=== PATIENT | male | born 1955 | race Caucasian/White ===

== ENCOUNTER → 2017-03-04 | Day surgery (SDC) | payer OTHER ==
[~2017-03-04] MED LIST: ACTOS15 MG PO; ATORVASTATIN CA10 MG PO; BACLOFEN20 M1 PO; COSOPT EYE DROPS5 ML OU; DULOXETINE HCL60 MG PO; FLOMAX0.4 M1 PO; GABAPENTIN300 MG PO; HUMALOG100 U/M2 SUBQ; HUMALOG100 UNIT/2 SUBQ; HYDROCODON-ACE1 EAC7 PO; INVOKANA300 MG PO; LEVEMIR FL100 UNIT/1 SUBQ; LEVEMIR SUBQ; LUMIGAN2.5 ML OD; NEURONTIN PO; PHENERGAN25 M1 PO; REGLAN10 MG PO; SIMBRINZA 1%-0.28 ML OU; TRAMADOL HCL50 M1 PO; TRAMADOL HCL50 M2 PO; ZANAFLEX4 M1 PO
--- NOTE | ~2017-03-04 | OR ---
Unit #: [id number] #: [id number] Patient: JOANNA PAULINO JR [id number] [address] [address] [id number] O MR#: [id number] NAME: JOANNA PAULINO JR ROOM: Date of Procedure: 03/04/2017 Admission Date: 03/04/2017 Surgeon: Daniel Vela M.D. : 1955 Attending Physician: Daniel Vela M.D. Primary Care Physician: Krishna Shirley M.D. OPERATIVE REPORT PREOPERATIVE DIAGNOSES 1. Diarrhea. 2. History of colonic polyps. POSTOPERATIVE DIAGNOSES 1. Diarrhea. 2. History of colonic polyps. PROCEDURES PERFORMED 1. Colonoscopy to cecum. 2. Multiple random biopsies of colon. ANESTHESIA Monitored anesthesia care. FINDINGS The patient had normal colon to the cecum except for mild internal hemorrhoids. SPECIMENS Sent to pathology. COMPLICATIONS None apparent. CONDITION The patient tolerated the procedure well. INDICATIONS FOR PROCEDURE The patient is a 61-year-old white male, who has had some intermittent diarrhea. He has lost 8 to 10 pounds. He presents at this time for evaluation by colonoscopy. DESCRIPTION OF PROCEDURE After obtaining informed consent, the patient was brought to the endoscopy suite and after adequate monitored anesthesia care, had digital examination performed of the rectum. There was good sphincter tone. No masses palpable. At this point in time, the colonoscope was placed through the anus and slowly advanced to the level of the cecum without difficulty with the lumen always in view. The cecum was within normal limits as was the ileocecal valve. There was no obvious abnormality seen. On pulling back from this area, the cecum appeared normal as that the Unit #: [id number] #: [id number] Patient: JOANNA PAULINO JR ascending colon, hepatic flexure, transverse colon, splenic flexure, descending colon, sigmoid colon, and rectum. Multiple random biopsies were obtained throughout the colon with good hemostasis. Upon retroflexing in the rectum to the anorectal junction, there was no obvious abnormality seen. The scope was removed without difficulty. The patient tolerated the procedure well and went from the endoscopy suite to the recovery area in stable condition. RECOMMENDATIONS High-fiber diet, lots of liquids, tucks or wipes p.r.n. Call [facility] for pathology. Dictated by... Dustin Rodriguez/feli TD: 03/04/2017 23:11 JOB #: [id number] [facility] OPERATIVE REPORT Page 1 of 1 X Daniel Vela MD X PROCEDURE OPERATIVE NOTE
== END | disposition home or self-care (01) ==
LOC: COPS 05:47
DX: R19.7 Diarrhea, unspecified (principal); Z86.010 Personal history of colon polyps; K64.8 Other hemorrhoids; E11.9 Type 2 diabetes mellitus without complications; Z79.4 Long term (current) use of insulin
CPT/HCPCS: 82947; 88305; J2250

== ENCOUNTER → 2017-05-06 | Outpatient (CLI) | payer OTHER ==
--- NOTE | ~2017-05-06 | TH ---
Unit #: [id number] #: [id number] Patient: JOANNA PAULINO JR [id number] [address] [address] [id number] O MR#: [id number] NAME: JOANNA PAULINO JR : 1955 SEX: M STUDY DATE/TIME: 05/06/2017 UNIT: [facility] ROOM: STUDY DESCRIPTION: Cardiolite imaging. Attending Physician: Idris Wills M.D. Referring Physician: Idris Wills M.D. Primary Care Physician: Krishna Shirley M.D. CARDIOLOGY REPORT EXAM Cardiolite imaging. PROCEDURE Using technetium 99m labeled Cardiolite, rest and stress SPECT images were obtained. Multiple SPECT images were obtained in various views, including horizontal and vertical long axis and short axis views of the left ventricle. Images were obtained by gated SPECT method. The patient was administered 10.1 mCi of Cardiolite at rest and 27.3 mCi of Cardiolite after Lexiscan infusion was completed. On the stress images there is normal perfusion noted. The rest images showed normal perfusion. Comparing rest and stress images there is no stress induced ischemia noted. The left ventricular ejection fraction is calculated to be 60%. There is no focal wall motion abnormality seen. CONCLUSION 1. No stress induced ischemia noted. 2. The left ventricular ejection fraction is calculated to be 60%. 3. There is on focal wall motion abnormality seen. 4. Normal Lexiscan Cardiolite stress test. 5. Technically somewhat limited study due to the patient's body habitus. Clinical correlation is requested. Dictated by... Dustin Kidd TD: 05/06/2017 13:27 JOB #: [id number] CC: Idris Wills M.D. CARDIOLOGY REPORT Page 1 of 1 X Zakiya Hedrick MD <ELECTRONICALLY SIGNED> 06/02/17 1524 CARDIOLOGY REPORT
--- NOTE | ~2017-05-06 | ST ---
Unit #: [id number] #: [id number] Patient: JOANNA PAULINO JR [id number] [address] [address] [id number] O MR#: [id number] NAME: JOANNA PAULINO JR : 1955 SEX: M STUDY DATE/TIME: 05/06/2017 UNIT: [facility] ROOM: STUDY DESCRIPTION: Stress test Attending Physician: Idris Wills M.D. Referring Physician: Idris Wills M.D. Primary Care Physician: Krishna Shirley M.D. CARDIOLOGY REPORT EXAM EKG portion of Lexiscan Cardiolite stress test. REASON FOR EXAM Chest pain and hypertension. DISCUSSION Baseline EKG reveals sinus rhythm with ventricular rate of 92 beats per minute. Left axis deviation. Poor R wave progression noted. A total of 0.4 mg of Lexiscan was injected per protocol followed by Cardiolite. The patient had some mild chest tightness and shortness of breath after Lexiscan was given. His pain improved in recovery. There were no sustained arrhythmias noted. There were no ST or T wave changes to suggest ischemia. Maximal heart rate was 102 beats per minute with maximal blood pressure of 160/98 mmHg. The test was stopped due to protocol completion. The patient was held for preliminary review of pictures due to chest tightness. IMPRESSION 1. Negative EKG portion of Lexiscan Cardiolite stress test. 2. The patient had some chest tightness and shortness of breath which improved in recovery. 3. There were no ST or T wave changes to suggest ischemia. 4. There were no sustained arrhythmias noted. 5. Please correlate with Cardiolite images. Dictated by... Ling Dobson APRN for Dustin Kidd/isaias TD: 05/06/2017 13:10 JOB #: [id number] Unit #: [id number] #: [id number] Patient: JOANNA PAULINO JR CARDIOLOGY REPORT Page 1 of 1 X CARDIOLOGY REPORT
== END | disposition home or self-care (01) ==
LOC: CNUC 09:00
DX: R07.9 Chest pain, unspecified (principal); I10 Essential (primary) hypertension; E78.5 Hyperlipidemia, unspecified
CPT/HCPCS: 78452; 93017; A9500; J2785

== ENCOUNTER → 2017-05-19 | Outpatient (CLI) | payer OTHER ==
--- NOTE | ~2017-05-19 | US136 ---
[facility] A Service of [facility] RADIOLOGY TEXT RESULTS PATIENT: JOANNA PAULINO JR LOCATION: CNIV : [birth year] UNIT #: [id number] AGE: [address]: AISHWARYA VILLALBA MD SEX: M ORDER DR: [id number] [facility] [address]. [place], [place] [address] [id number] O MR#: [id number] Acc #: [id number] NAME: JOANNA PAULINO : 1955 SEX: M STUDY DATE/TIME: 05/19/2017 9:36 UNIT: [facility] ROOM: STUDY DESCRIPTION: US U/L Ext Art Study [facility] Bil Attending Physician: Aishwarya Villalba M.D. Referring Physician: Aishwarya Villalba M.D. Ordering Physician: Aishwarya Villalba M.D. Primary Care Physician: Aishwarya Villalba M.D. MEDICAL IMAGING REPORT This report is preliminary unless electronic signature is present EXAM Ankle brachial indices HISTORY Claudication FINDINGS The right brachial artery pressure is 149; the right posterior tibial pressure is 172 with ankle brachial index of 1.15. The right dorsalis pedis pressure is 162 with an ankle brachial index of 1.09. The right digital pressure is 154 with a toe index of 1.03. The left brachial artery pressure is 144; the left posterior tibial pressure is 168 with an ankle brachial index of 1.13. The left dorsalis pedis pressure is 158 with an ankle brachial index of 1.06. The left digital pressure is 151 with a toe index of 1.01. Posterior tibial and dorsalis pedis wave forms are triphasic, bilaterally. Right and left ankle wave forms demonstrate a sharp upstroke in diacritic notch bilaterally. IMPRESSION 1. The right JERARDO is 1.15, with no evidence of arterial insufficiency. 2. The left JERARDO is 1.13, with no evidence of arterial insufficiency. Dictated by... Wiliam Carter M.D. THIS IS AN ELECTRONICALLY VERIFIED REPORT [facility] A Service of [facility] RADIOLOGY TEXT RESULTS PATIENT: JOANNA PAULINO JR LOCATION: CNIV : [birth year] UNIT #: [id number] AGE: [address]: AISHWARYA VILLALBA MD SEX: M ORDER DR: Wiliam Carter M.D. at 05/30/2017 9:31 AM AC/to TD: 05/19/2017 18:06 JOB #: [id number] MEDICAL IMAGING REPORT Page 1 of 1 COPY
== END | disposition home or self-care (01) ==
LOC: CNIV 05-17 09:00
DX: I73.9 Peripheral vascular disease, unspecified (principal)
CPT/HCPCS: 93922